=== PATIENT | female | born 2005 | race Caucasian/White ===

== ENCOUNTER 2024-04-13 01:22 | Emergency (ER) | payer OTHER, SELFPAY ==
--- NOTE | ~2024-04-13 | XR_ITS ---
Portable chest x-ray Comparison: None Clinical History: Chest pain Findings: Lungs are clear, without focal consolidation or pleural effusion. Cardiomediastinal silho uette is unremarkable. Bones and soft tissues are unremarkable. Impression: Normal chest. Reviewed, dictated and finalized at location M. Impression: Normal chest.
[2024-04-13 01:28] VITALS: BP 147/97; PULSE 96; RESP 16; TEMP 36.3; O2SAT 100
--- NOTE | 2024-04-13 01:31 | ECG_ITS ---
Test Date: 2024-04-13 01:35:41 Measurements Intervals Erin Rate: 83 P: 41 VA: 160 QRS: 32 QRSD: 83 T: 30 QT: 366 QTc: 431 Interpretive Statements SINUS RHYTHM BASELINE ARTIFACT- I, III, AVR, AVL, AVF, V1, V4-V6 NORMAL ECG No previous ECG available for comparison Electronically Signed On 04-13-2024 06:28:32 CDT by Marv Jernigan D.O.
[2024-04-13 01:42] LABS: Basophils Percent Auto 0.4 % (0.2-1.2); Eosinophils Absolute Auto 0.2 K/mm3 (0-0.3); Eosinophils Percent Auto 1.9 % (0-4.4); Hematocrit 42.8 % (37.0-47.0); Hemoglobin 14.1 g/dL (12.0-15.0); Immature Granulocyte Absolute 0.03 K/mm3 (0.00-0.031); Immature Granulocyte Percent A 0.3 % (0-0.5); Lymphocytes Absolute Auto 3.79 K/mm3 (0.9-3.2); Lymphocytes Percent Auto 40.2 % (18.3-44.2); Mean Corpuscular HGB Conc 32.9 g/dl (32-36); Mean Corpuscular Hemoglobin 29.6 pg (26-34); Mean Corpuscular Volume 89.7 fl (80-100); Monocytes Absolute Auto 0.6 K/mm3 (0.1-0.6); Monocytes Percent Auto 6.6 % (2.6-8.5); Neutrophils Absolute Auto 4.8 K/mm3 (1.3-6.7); Neutrophils Percent Auto 50.6 % (45.5-73.1); Platelet Count Result 346 k/mm3 (150-375); Red Blood Count 4.77 M/mm3 (4.2-5.4); Red Cell Distribution Width 13.3 % (11.5-14.5); White Blood Count 9.4 K/mm3 (4.5-10.0)
--- NOTE | 2024-04-13 01:51 | ED.CHESTPAIN ---
HPI - Chest Pain General Chief Complaint: Chest Pain Stated Complaint: chest pain and nausea for 1 hour Time Seen by Provider: 04/13/24 01:42 History of Present Illness HPI narrative: 19 y/o F with a reports PMHx of GERD and anxiety presents to the ED for chest pain that started 1 hour ago. Patient states she had the urge to urinate in her sleep so she woke up and went to the bathroom when she started having chest pain. She states the pain is a pressure in her chest with intermittent sharp stabbing pains. She reports associated shortness of breath. She denies aggravating or alleviating factors. His cough, congestion, fever, hemoptysis, recent surgery or hospitalization under general anesthesia, history of VTE. She does state that sometimes she cannot chest pain when she has anxiety but this does not feel the same. She is questioning whether her current symptoms are anxiety. Reports having increased stressors recently. States she took omeprazole tonight without improvement. She had pasta without sauce for dinner. Related Data Allergies Allergy/AdvReac Type Severity Reaction Status Date / Time cefdinir [From Omnicef] Allergy Hives Verified 04/13/24 02:34 Penicillins Allergy Hives Verified 04/13/24 02:34 Review of Systems Review of Systems: All systems reviewed & are unremarkable except as noted in HPI and below Exam Narrative: GENERAL: Well-appearing, well-nourished, and in no acute distress. Anxious appearing HEAD: Normocephalic, atraumatic. ENT: Nares clear, no rhinorrhea or epistaxis. Mucous membranes moist. NECK: Supple. CHEST: Clear to auscultation. No respiratory distress. Tenderness to left costosternal border on palpation HEART: Regular rate and rhythm. No murmur heard. Normal peripheral pulses. ABDOMEN: Soft, nontender, nondistended, normal active bowel sounds. Minimal tenderness to the epigastrium, negative Mao sign EXTREMITIES: Normal range of motion. No edema. Negative Homans bilaterally SKIN: Warm, dry, no rash. NEURO: No focal deficits. Alert and oriented x3 Course Vital Signs Vital signs: Vital Signs Temperature 97.4 F L 04/13/24 01:28 Pulse Rate 96 04/13/24 01:28 Respiratory Rate 16 04/13/24 01:28 Blood Pressure 147/97 H 04/13/24 01:28 Pulse Oximetry 100 04/13/24 01:28 Oxygen Delivery Room Air 04/13/24 01:28 Temperature 97.4 F L 04/13/24 01:28 Pulse Rate 79 04/13/24 02:37 Respiratory Rate 13 04/13/24 02:36 Blood Pressure 119/74 04/13/24 02:36 Pulse Oximetry 99 04/13/24 02:37 Oxygen Delivery Room Air 04/13/24 02:37 MDM - Chest Pain MDM Narrative Medical decision making narrative: 19-year-old female with a reported history of anxiety and GERD presents to emergency department for chest pain. Vitals with high blood pressure 147/97, otherwise unremarkable. On exam, patient does appear anxious. Exam is significant for tenderness to the left costosternal border. Will obtain EKG, lab work, troponin and provide Pepcid a GI cocktail and re-evaluate. CBC without leukocytosis or anemia. Chemistries are unremarkable. Lipase is normal. EKG shows normal sinus rhythm with a rate of 83 ppm, normal NV interval, normal QRS duration, normal QTC, no ischemic changes. Troponin is undetectable. Chest x-ray shows no acute cardiopulmonary abnormality. Perc is negative. Workup discussed with the patient. Symptoms could be a variety of etiologies including GERD, anxiety and costochondritis. Heart score is 0. Plan to discharge home. I offered a prescription for hydroxyzine for anxiety, however patient politely declined. She states she feels reassured after her negative workup and is ready to go home. Encouraged follow-up with PCP. Strict ED return precautions provided. She is agreeable to plan verbalized understanding. Discharged in stable condition. Lab Data 04/13/24 01:36 04/13/24 01:36 Labs: Lab Results 04/13/24 Range/Units
[2024-04-13 01:52] LABS: INR 0.9; Partial Thromboplastin Time 28.6 Seconds (22.3-36.8); Prothrombin Time 12.8 Seconds (11.1-14.7)
[2024-04-13 01:55] LABS: Alanine Aminotransferase 24 U/L (6-35); Albumin Level 4.2 g/dL (3.5-5.1); Alkaline Phosphatase 93 U/L (38-126); Anion Gap 9 mmol/L (4-12); Aspartate Amino Transferase 26 U/L (14-36); Bilirubin,Total 0.2 mg/dL (0.2-1.3); Blood Urea Nitrogen 10 mg/dL (7-17); Calcium 9.4 mg/dL (8.4-10.2); Carbon Dioxide 26 mmol/L (22-30); Chloride 104 mmol/L (98-107); Estimated CRCL calculation 145 ml/min; Estimated Glomerular Filt Rate > 60; Glucose 95 mg/dL (65-110); Lipase 98 U/L (23-300); Potassium 3.9 mmol/L (3.4-5.0); Sodium 139 mmol/L (137-145)
[2024-04-13 02:05] LABS: Troponin I < 0.012 ng/mL (0.000-0.034)
[2024-04-13] MEDS: FAMOTIDINE 20 MG TABLET PO (02:35)
[2024-04-13] MEDS: ASPIRIN 81 MG CHEWABLE TABLET 324 MG PO (02:35)
[2024-04-13 02:36] VITALS: BP 119/74; PULSE 89; RESP 13; O2SAT 99
[2024-04-13] MEDS: BELLADONNA ALK/PHENOB ELIX 10 ML, MAG HYDROX/ALUMINUM HYD/SIMETH 30 ML, LIDOCAINE HCL 2... PO (02:36)
[2024-04-13 02:37] VITALS: PULSE 79; O2SAT 99
[2024-04-13 03:11] VITALS: BP 119/75; PULSE 68; RESP 18; TEMP 36.1; O2SAT 97
== END 2024-04-13 03:12 | disposition home or self-care (01) ==
PROVIDERS: Emergency Medicine; Emergency Provider Physician Assistant
DX: R07.89 Other chest pain (principal); K21.9 Gastro-esophageal reflux disease without esophagitis; F41.9 Anxiety disorder, unspecified
CPT/HCPCS: 36415; 71045; 80053; 83690; 84484; 85025; 85610; 85730; 93005; 99284; A9270